=== PATIENT | male | born 1960 | race Caucasian/White ===

== ENCOUNTER 2022-05-12 22:01 | Emergency (ER) | payer SELFPAY | END 2022-05-12 23:35 | disposition home or self-care (01) | LOC: ERS 22:01 | DX: H54.7 Unspecified visual loss (principal); I10 Essential (primary) hypertension; M10.9 Gout, unspecified; G47.30 Sleep apnea, unspecified; Z86.73 Personal history of transient ischemic attack (TIA), and cerebral infarction without residual deficits; Z79.82 Long term (current) use of aspirin; Z79.899 Other long term (current) drug therapy | CPT/HCPCS: 99283 ==